=== PATIENT | female | born 1985 | race Caucasian/White ===

== ENCOUNTER 2023-04-08 22:01 | Emergency (ER) | payer OTHER ==
[2023-04-08 22:19] VITALS: BMI 27.3
[2023-04-09 00:46] LABS: BASO % 1.2 % (0-2.0); EOS % 0.7 % (0-4.5); HEMOGLOBIN 10.2 GM/dL (10.7-15.3); LYMPH % 17.1 % (8-40); MEAN CELL VOLUME 93.9 fl (80-96); MEAN PLT VOLUME 9.8 fl (7.5-11.1); PLATELET COUNT 235 10^3/uL (134-434); RDW 12.9 % (11.6-15.6)
[2023-04-09 00:54] LABS: POTASSIUM 3.9 mmol/L (3.5-5.1)
[2023-04-09 00:56] LABS: CALCIUM 8.7 mg/dL (8.5-10.1)
[2023-04-09 00:57] LABS: ALBUMIN 2.7 g/dl (3.4-5.0); BLOOD UREA NITROGEN 7.4 mg/dL (7-18)
[2023-04-09 01:00] LABS: CREATININE 0.5 mg/dL (0.55-1.3)
[2023-04-09 01:01] LABS: TOT PROT 6.6 g/dl (6.4-8.2)
[2023-04-09 01:02] LABS: BILIRUBIN,TOTAL 0.1 mg/dL (0.2-1)
[2023-04-09] MEDS ORDERED: ACETAMINOPHEN 1000 MG/100 ML BAG IVPB ONE (02:18)
[2023-04-09 02:44] VITALS: TEMP 98.1
[2023-04-09] MEDS ORDERED: ACETAMINOPHEN INJECTION 100 ML IVPB ONE (02:46)
[2023-04-09 05:16] VITALS: BP 128/72; PULSE 88; RESP 18
== END 2023-04-09 05:16 | disposition home or self-care (01) ==
LOC: JER 22:01 → EDBD 22:01 → JER 04-09 05:16
PROC: 3E033NZ Introduction of Analgesics, Hypnotics, Sedatives into Peripheral Vein, Percutaneous Approach (ICD-10-PCS; principal; 2023-04-09)
DX: O30.002 Twin pregnancy, unspecified number of placenta and unspecified number of amniotic sacs, second trimester (principal); O99.512 Diseases of the respiratory system complicating pregnancy, second trimester; O99.892 Other specified diseases and conditions complicating childbirth; R06.00 Dyspnea, unspecified; R07.89 Other chest pain; R05.9 Cough, unspecified; E27.8 Other specified disorders of adrenal gland; R10.9 Unspecified abdominal pain; Z3A.26 26 weeks gestation of pregnancy; Z20.822 Contact with and (suspected) exposure to COVID-19
CPT/HCPCS: 0241U-QW; 36415; 71275-TC; 80053; 84484; 85025; 93005; 93010; 99285-25; Q9967